=== PATIENT | male | born 1965 | race Caucasian/White ===

== ENCOUNTER 2019-01-07 06:38 | Day surgery (SDC) | payer OTHER ==
[~2019-01-07] VITALS: Ht 180.3 cm; Wt 84.0 kg
[~2019-01-07 06:38] MED LIST: ACETAMINOPHEN 500 MG TABLET PO PRN; BUPIVACAINE-EPI 0.25%-1:200000 MPF 30 ML VIAL. INJ ONE; GLUC-158 PO; NIAC1000 PO
[2019-01-07] MEDS ORDERED: ONDANSETRON PF 4 MG/2 ML VIAL. ONE (06:56)
[2019-01-07] MEDS ORDERED: PROPOFOL 20 ML IV ONE (06:56)
[2019-01-07] MEDS ORDERED: DEXAMETHASONE SOD PHOS 20 MG/5 ML VIAL. ONE ×2 (06:56→07:31)
[2019-01-07] MEDS ORDERED: LIDOCAINE 2% PF 5 ML VIAL. ONE (06:56)
[2019-01-07] MEDS ORDERED: ROCURONIUM 50 MG/5 ML VIAL. ONE (06:57)
[2019-01-07] MEDS ORDERED: ONDANSETRON PF 4 MG/2 ML VIAL. IV PRN ×2 (07:00)
[2019-01-07] MEDS ORDERED: PROCHLORPERAZINE 10 MG/2 ML VIAL. IV PRN ×2 (07:00)
[2019-01-07] MEDS ORDERED: fentaNYL PF VIAL 100 MCG/2 ML VIAL IV PRN ×4 (07:00)
[2019-01-07] MEDS ORDERED: IV RINGERS,LACTATED 1000ML 1,000 ML IV SCH ×2 (07:00)
[2019-01-07] MEDS ORDERED: HYDROmorphone 2 MG/ML VIAL IV PRN ×2 (07:00)
[2019-01-07] MEDS ORDERED: MORPHINE SULFATE 2 MG/ML VIAL. IV PRN ×2 (07:00)
[2019-01-07] MEDS ORDERED: LIDOCAINE 1% PF 2 ML VIAL. ID PRN ×2 (07:00)
[2019-01-07] MEDS ORDERED: SEVOFLURANE 61 TO 120 MINUTES. IH ONE (07:29)
[2019-01-07] MEDS ORDERED: KETOROLAC 30 MG/ML INJ FOR OR. INJ ONE (07:29)
[2019-01-07] MEDS ORDERED: ACETAMINOPHEN 500 MG TABLET PO ONE (07:30)
[2019-01-07] MEDS ORDERED: BUPIVACAINE MPF 0.25% 30 ML VIAL. ONE ×2 (07:32→08:37)
[2019-01-07] MEDS ORDERED: EPINEPHrine 1 MG/ML VIAL ONE (07:32)
[2019-01-07] MEDS ORDERED: NEOSTIGMINE METHYLSULFATE 5 MG/5 ML SYRINGE. ONE (08:24)
[2019-01-07] MEDS ORDERED: GLYCOPYRROLATE 1 MG/5 ML VIAL. ONE (08:24)
--- NOTE | 2019-01-07 08:58 | PDOC4 ---
Operative Note Operative Note Date: 01/07/2019 Preoperative diagnosis: Left inguinal hernia Postoperative diagnosis: Same Procedure: Robotic-assisted laparoscopic left inguinal hernia repair with mesh Surgeon: Jovon Dictation: Patient is a 53-year-old woman complained of a bulge coming out after lifting a heavy object with some discomfort. Procedure of robotic-assisted laparoscopic left anal hernia repair with mesh was explained to the patient detail risk benefits were also discussed including bleeding infection injury to intra-abdominal contents possibly necessitating further or open operations alter natives to this procedure also discussed with patient who seemed to understand and gave both verbal and written consent to have the procedure performed. Patient was taken to the operating room placed in supine position general anesthesia was initiated once patient was sleep and intubated is placed in low lithotomy positioning and his abdomen was prepped and draped usual sterile fas hion using ChloraPrep. An area just above the umbilicus was injected with quarter percent Marcaine with epinephrine incision was made 11 blade scalpel and a varies needle was placed within the abdomen creating pneumoperitoneum once this was complete 8mm da Zelda port was placed and the da Zelda camera was placed within the abdomen which was inspected was noted he had a small hernia on the left side right side appeared normal. At this point a 8mm da Zelda port was placed in the right mid abdomen and one in the left mid abdomen that eventually robotic brought in and docked all port sites surgeon went to the robotic console using grasper and Endo Natacha scissors the peritoneum was incised over the left groin a window was propagated and inferior flap made of the peritoneum reducing the hernia and its contents. A large Bard 3-D max left mesh was placed over the floor the canal covering the hernia defect the peritoneum was then closed with a running 20V LOC absorbable suture. A da Zelda was undocked all ports removed the skin incisions were all closed for septic and a Monocryl Mastisol Steri-Strips and island dressings were applied a she was awakened and asked bated operating room taken to recovery in stable condition all sponge instrument needle counts listed as correct estimated blood loss 5 mL. KELSY DELATORRE MD Jan 07, 2019 08:58
--- NOTE | 2019-01-07 09:06 | DISCH ---
DISCHARGE INSTRUCTIONS Condition on Discharge Condition on Discharge: Stable Activity After Discharge Activity Instructions for Disc: Avoid exertion Other activity instructions: no lifting more than 20 pounds for 2 weeks Diet after Discharge Diet after Discharge: Regular Wound Incision Care Other wound/incision instructi: May shower in 24 hours Contacting the DRAnu after DC Call your doctor for: If your condition worsens Follow-Up Follow up with: Dr. Delatorre in 2 weeks KELSY DELATORRE MD Jan 07, 2019 09:06
[2019-01-07] MEDS ORDERED: OXYC1TAB15 PO (09:30)
[2019-01-07 09:45] VITALS: BP 136/78
[2019-01-07] MEDS ORDERED: oxyCODONE/APAP 5/325 1 TAB TABLET PO ONE ×2 (09:45)
== END 2019-01-07 10:20 | disposition home or self-care (01) ==
LOC: SURG 06:38
PROVIDERS: ATTEND Surgery
DX: K40.90 Unilateral inguinal hernia, without obstruction or gangrene, not specified as recurrent (principal)
CPT/HCPCS: 49650; A7015; C1781; J0171; J1100; J1885; J2001; J2405; J2704; J2710; J3490; S2900

== ENCOUNTER → 2020-01-17 | Outpatient (CLI) | payer OTHER ==
[~2020-01-17] MED LIST changes: -ACETAMINOPHEN 500 MG TABLET PO PRN; -BUPIVACAINE-EPI 0.25%-1:200000 MPF 30 ML VIAL. INJ ONE; +OXYC1TAB15 PO
[2020-01-17 15:54] LABS: BASO % 1 % (0-3); EOS % 0 % (0-3); HEMATOCRIT 48.7 % (39.0-53.0); HEMOGLOBIN 16.8 g/dL (13.0-17.5); LYMPH # 2.2 x10^3/uL (1.0-4.8); LYMPH % 25 % (24-48); MEAN CORPUSCULAR HEMOGLOBIN 33 pg (25-35); MEAN CORPUSCULAR HGB CONC 35 g/dL (31-37); MEAN CORPUSCULAR VOLUME 94 fL (79-100); MONO # 0.6 x10^3/uL (0.0-1.1); MONO % 7 % (0-9); NEUT # 5.7 x10^3/uL (1.8-7.7); NEUT % 67 % (31-73); PLATELET COUNT 219 x10^3/uL (140-400); RED BLOOD COUNT 5.16 x10^6/uL (4.30-5.70); WHITE BLOOD COUNT 8.6 x10^3/uL (4.0-11.0)
[2020-01-17 16:22] LABS: ALBUMIN 4.2 g/dL (3.4-5.0); ALBUMIN/GLOBULIN RATIO 1.2 (1.0-1.7); CALCIUM 8.8 mg/dL (8.5-10.1); CREATININE 1.2 mg/dL (0.7-1.3); GFR 62.9; POTASSIUM 4.3 mmol/L (3.5-5.1); TOTAL BILIRUBIN 0.4 mg/dL (0.2-1.0); TOTAL PROTEIN 7.7 g/dL (6.4-8.2)
[2020-01-17 16:25] LABS: CHOLESTEROL/HDL RATIO 3.6
== END ==
LOC: LAB 14:00
PROVIDERS: ATTEND Orthopaedic Surgery
DX: Z00.00 Encounter for general adult medical examination without abnormal findings (principal); Z12.5 Encounter for screening for malignant neoplasm of prostate
CPT/HCPCS: 80053; 80061; 82306; 85025; 86481; G0103; 36415